=== PATIENT | male | born 1970 | race Caucasian/White ===

== ENCOUNTER 2017-06-05 11:09 | Emergency (ER) | payer BC ==
[2017-06-05] MEDS ORDERED: TETANUS & DIPHTHERIA TOX,ADULT 0.5 ML VIAL ONE (13:04)
--- NOTE | 2017-06-05 13:38 | RAD REPORT ---
EXAM DESCRIPTION: RAD - Hand Right 3 View - 06/05/2017 1:15 pm CLINICAL HISTORY: Trip and fall, hand pain COMPARISON: None. FINDINGS: Transverse fracture is present at the proximal shaft first metacarpal bone. Minimal angula tion deformity with no overlap or significant distraction. No pathologic component. Phalanges of the first digit show no acute finding. Carpal bones are unremarkable. The second- fifth phalanges and met acarpals without acute finding. There is remodeling from old fifth metacarpal fracture. There is no d islocation or periosteal reaction noted. No foreign body or other soft tissue abnormality. IMPRESSION: Fracture of the first metacarpal bone with minimal angulation deformity.
[2017-06-05] MEDS ORDERED: KETOROLAC 30 MG/ML INJ ONE (13:52)
--- NOTE | 2017-06-05 14:30 | ER ---
Nurse's Notes [facility] Name: Yogesh Moss Age: 47 yrs Sex: Male : 1970 Arrival Date: 06/05/2017 Time: 11:11 Bed 10 Private MD: Diagnosis: Displaced fracture of neck of first metacarpal bone, right hand;Contusion of unspecified part of head;Abrasion of hand Presentation: 06/05 11:27 Presenting complaint: Patient states: "I jammed up my hand (right) really bad. I lk1 tripped down some stairs and fell on it 2 days ago.". Transition of care: patient was not received from another setting of care. Initial Sepsis Screen: Does the patient meet any 2 criteria? No. Patient's initial sepsis screen is negative. Does the patient have a suspected source of infection? No. Patient initial sepsis screen negative. Onset of symptoms was June 03, 2017. Care prior to arrival: None. 11:27 Method Of Arrival: Ambulatory lk1 11:27 Acuity: JESSICA 4 lk1 Triage Assessment: 11:28 General: Appears in no apparent distress. Behavior is calm, cooperative, appropriate lk1 for age. Pain: Complains of pain in right hand Pain currently is 9 out of 10 on a pain scale. Musculoskeletal: Circulation, motion, and sensation intact. Swelling present in right hand. Injury Description: Bruise. Historical: - Allergies: 11:28 No Known Allergies; lk1 - PMHx: 11:28 None; lk1 - PSHx: 11:28 facial surgery; lk1 - Immunization history:: Adult Immunizations up to date. - Social history:: Smoking status: Patient/guardian denies using tobacco. Screenin:37 Abuse screen: Denies threats or abuse. Nutritional screening: No deficits noted. la1 Tuberculosis screening: No symptoms or risk factors identified. Fall Risk None identified. Assessment: 14:38 General: Appears in no apparent distress. Behavior is calm, cooperative. Pain: la1 Complains of pain in heel of right hand and right hand. Neuro: No deficits noted. Cardiovascular: Capillary refill < 3 seconds. Respiratory: Airway is patent Respiratory effort is even, unlabored. GI: No signs and/or symptoms were reported involving the gastrointestinal system. : No signs and/or symptoms were reported regarding the genitourinary system. Musculoskeletal: Circulation, motion, and sensation intact. Capillary refill < 3 seconds, is brisk, in bilateral fingers. Vital Signs: 11:29 BP 147 / 98; Pulse 84; Resp 15; Temp 98.3(TE); Pulse Ox 98% on R/A; Weight 72.57 kg lk1 (R); Height 5 ft. 8 in. (172.72 cm) (R); Pain 9/10; 11:29 Body Mass Index 24.33 (72.57 kg, 172.72 cm) lk1 ED Course: 11:11 Patient arrived in ED. as 11:28 Triage completed. lk1 11:31 Arm band placed on left wrist. lk1 11:47 Edwige Winkler, SAW is Primary Nurse. iw 11:48 Anais Harding FNP-C is PHCP. snw 11:48 Alessio Moran MD is Attending Physician. snw 13:14 X-ray completed. Portable x-ray completed in exam room. jr1 13:15 Hand Right 3 View XRAY In Process Unspecified. EDMS 14:12 Orthoglass splint: Thumb spica splint applied on right forearm. capillary refill less dh3 than 3 seconds. 14:29 Deuce Matson MD is Referral Physician. snw 14:37 Call light in reach. la1 14:37 No provider procedures requiring assistance completed. Patient did not have IV access la1 during this emergency room visit. Administered Medications: 14:00 Drug: Tetanus-Diphtheria Toxoid Adult 0.5 ml {Cattle Sticker: [employer]. Exp: 06/30/2019. Lot #: [id number]. } Route: IM; Site: left deltoid; 14:37 Follow up: Response: No adverse reaction la1 14:00 Drug: TORadol 60 mg Route: IM; Site: right gluteus; iw 14:37 Follow up: Response: No adverse reaction; Pain is decreased la1 Outcome: 14:30 Discharge ordered by . snw 14:38 Discharged to home ambulatory. la1 14:38 Condition: stable 14:38 Discharge instructions given to patient, Instructed on discharge instructions, follow up and referral plans. medication usage, Demonstrated understanding of instructions, follow-up care, medications, Prescriptions given X 1. 14:38 Patient left the ED. la1 Signatures: Dispatcher [employer] EDMS Anais Harding MEMS ENGINEER-C MEMS ENGINEER-Csnw Danni Mak jr1 Marilou High Irene, RN RN Mir Larsen, RN RN la1 Doris Brown, SAW RN lk1 Ganesh, Carito 3
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
== END 2017-06-05 14:38 | disposition home or self-care (01) ==
LOC: ER 11:09
PROC: 2W3GX1Z Immobilization of Right Thumb using Splint (ICD-10-PCS; principal; 2017-06-05)
DX: S62.251A Displaced fracture of neck of first metacarpal bone, right hand, initial encounter for closed fracture (principal); S00.93XA Contusion of unspecified part of head, initial encounter; S60.511A Abrasion of right hand, initial encounter; W10.9XXA Fall (on) (from) unspecified stairs and steps, initial encounter; Y93.89 Activity, other specified; Y92.009 Unspecified place in unspecified non-institutional (private) residence as the place of occurrence of the external cause; Z23 Encounter for immunization
CPT/HCPCS: 90714; 96372; 99284